=== PATIENT | male | born 1995 | race Caucasian/White ===

== ENCOUNTER 2022-01-23 00:26 | Inpatient (IN) | payer MEDICAID, OTHER ==
[~2022-01-23] VITALS: Ht 167.6 cm; Wt 79.4 kg
[2022-01-23 01:22] LABS: BASOPHILS % (AUTO) 0.6 % (0.0-2.0); EOSINOPHILS % (AUTO) 1.4 % (1.0-6.0); HEMATOCRIT 44.4 % (41-53); HEMOGLOBIN 15.3 g/dL (13.5-17.5); LYMPHOCYTES # (AUTO) 1.8 K/uL (1.0-4.8); LYMPHOCYTES % (AUTO) 23.7 % (22.0-44.0); MEAN CORPUSCULAR HEMOGLOBIN 29.8 pg (26.0-34.0); MEAN CORPUSCULAR HGB CONC 34.4 G/dL (31.0-37.0); MEAN CORPUSCULAR VOLUME 86 fL (80-100); MONOCYTES # (AUTO) 0.7 K/uL (0.1-1.0); MONOCYTES % (AUTO) 9.6 % (2.0-9.0); NEUTROPHILS # (AUTO) 4.9 K/uL (1.8-7.7); NEUTROPHILS % (AUTO) 64.7 % (40.0-70.0); PLATELET COUNT (AUTO) 404 K/uL (150-450); RED BLOOD CELL COUNT(AUTO) 5.14 MIL/uL (4.50-5.90); RED CELL DISTRIBUTION WIDTH 13.1 % (11.5-14.5)
[2022-01-23 01:32] LABS: ANION GAP 8 mmol/L (8-16); CALCIUM, TOTAL 9.2 mg/dL (8.8-10.5); CARBON DIOXIDE 25 mmol/L (22-29); CHLORIDE 103 mmol/L (98-107); CREATININE 1.02 mg/dL (0.60-1.30); GLUCOSE,RANDOM 123 mg/dL (70-110); POTASSIUM 3.6 mmol/L (3.5-5.1); SODIUM SERUM 136 mmol/L (136-145); UREA NITROGEN, BLOOD 17 mg/dL (7-18)
[2022-01-23 01:34] LABS: GLOMERULAR FILTR. RATE CALC > 60 mL/min (>60)
[2022-01-23 01:37] LABS: ALANINE AMINOTRANSFERASE 200 U/L (12-78); ALKALINE PHOSPHATASE 126 U/L (46-116); ASPARTATE AMINOTRANSFERASE 73 U/L (15-37); BILIRUBIN,TOTAL 0.2 mg/dL (0.1-1.0); TOTAL PROTEIN, SERUM 8.7 g/dL (6.4-8.2)
[2022-01-23] MEDS ORDERED: ZOLPIDEM TARTRATE 10 MG TABLET PO PRN (02:30)
[2022-01-23] MEDS ORDERED: HALOPERIDOL 5 MG TABLET PO PRN (02:30)
[2022-01-23] MEDS ORDERED: LORazepam 2 MG TABLET PO PRN (02:30)
[2022-01-23 03:38] LABS: COVID AG,FIA SOURCE NASOPHARYNGEAL
[2022-01-23 03:48] LABS: APPEARANCE,URINE CLEAR (CLEAR); BILIRUBIN,URINE NEGATIVE (NEGATIVE); GLUCOSE, URINE (UA) NEGATIVE (NEGATIVE); KETONES,URINE TRACE mg/dL (NEGATIVE); LEUKOCYTE ESTERASE ,URINE NEGATIVE (NEGATIVE); NITRATE,URINE NEGATIVE (NEGATIVE); OCCULT BLOOD,URINE NEGATIVE (NEGATIVE); PH,URINE 6.5 (5.0-8.0); PROTEIN,URINE TRACE mg/dL (NEGATIVE); SPECIFIC GRAVITIY, URINE 1.033 (1.003-1.030); UROBILINOGEN,URINE <=1.0 mg/dL (<=1.0)
[2022-01-23 03:49] LABS: AMPHET/METH SCREEN,URINE NEGATIVE (NEGATIVE); BARBITURATE SCREEN, URINE NEGATIVE (NEGATIVE); BENZODIAZEPINES SCREEN,URINE NEGATIVE (NEGATIVE); CANNABINOID SCREEN,URINE POSITIVE (NEGATIVE); COCAINE SCREEN,URINE NEGATIVE (NEGATIVE); METHADONE SCREEN, URINE NEGATIVE (NEGATIVE); OPIATE SCREEN,URINE NEGATIVE (NEGATIVE); PHENCYCLIDINE SCREEN,URINE NEGATIVE (NEGATIVE)
[2022-01-23 10:23] VITALS: BP 136/90
[2022-01-23 10:31] VITALS: BP 121/79
[2022-01-23 16:26] VITALS: BP 115/73
[2022-01-23] MEDS: OLANZapine 5 MG TABLET PO SCH (20:20)
[2022-01-24] MEDS ORDERED: ONDANSETRON HCL 4 MG TABLET PO PRN (06:45)
[2022-01-24] MEDS ORDERED: ALBUTEROL SULFATE HFA 90 MCG/PUFF 8 GM INHALER IH PRN (06:45)
[2022-01-24] MEDS ORDERED: ACETAMINOPHEN 325 MG TABLET PO PRN (06:45)
[2022-01-24] MEDS ORDERED: DOCUSATE SODIUM 100 MG CAPSULE PO PRN (06:45)
[2022-01-24] MEDS ORDERED: LOPERAMIDE HCL 2 MG CAPSULE PO PRN (06:45)
[2022-01-24] MEDS ORDERED: PETROLATUM,WHITE 28 GM JELLY TP PRN (06:45)
[2022-01-24] MEDS ORDERED: NICOTINE 14 MG/24 HOUR PATCH TD PRN (06:45)
[2022-01-24] MEDS ORDERED: MAG HYDROX/AL HYDROX/SIMETH ES 30 ML SUSPENSION UDCUP PO PRN (06:45)
[2022-01-24] MEDS ORDERED: IBUPROFEN 400 MG TABLET PO PRN (06:45)
[2022-01-24] MEDS ORDERED: MAGNESIUM HYDROXIDE SUSPENSION 30 ML UDCUP PO PRN (06:45)
[2022-01-24] MEDS ORDERED: GuaiFENesin/D-METHORPHAN [SUGAR-FREE] 200-20MG/10 ML SYRUP UDCUP PO PRN (06:45)
[2022-01-24] MEDS ORDERED: CloNIDine HCL 0.1 MG TABLET PO PRN (06:45)
[2022-01-24] MEDS: SERTRALINE HCL 50 MG TABLET PO SCH (08:48)
[2022-01-24 09:05] VITALS: BP 102/65
[2022-01-24 16:30] VITALS: BP 148/96
[2022-01-24] MEDS: OLANZapine 5 MG TABLET PO SCH (20:12)
[2022-01-25 08:24] VITALS: BP 133/76
[2022-01-25] MEDS: SERTRALINE HCL 50 MG TABLET PO SCH (09:00)
[2022-01-25 16:00] VITALS: BP 100/69
[2022-01-25] MEDS: OLANZapine 5 MG TABLET PO SCH (20:11)
[2022-01-26] MEDS: SERTRALINE HCL 50 MG TABLET PO SCH (08:37)
[2022-01-26 09:28] VITALS: BP 111/69
[2022-01-26 16:19] VITALS: BP 114/79
[2022-01-26] MEDS: OLANZapine 5 MG TABLET PO SCH ×2 (16:19→20:45)
[2022-01-27 08:00] VITALS: BP 110/65
[2022-01-27] MEDS: SERTRALINE HCL 50 MG TABLET PO SCH (08:58)
[2022-01-27] MEDS: OLANZapine 5 MG TABLET PO SCH ×2 (08:59→22:38)
[2022-01-27 16:51] VITALS: BP 110/66
[2022-01-28] MEDS: SERTRALINE HCL 50 MG TABLET PO SCH (08:42)
[2022-01-28] MEDS: OLANZapine 5 MG TABLET PO SCH ×2 (08:42→20:40)
[2022-01-28 08:43] VITALS: BP 95/60
[2022-01-28 17:25] VITALS: BP 125/76
[2022-01-29 08:39] VITALS: BP 131/71
[2022-01-29 09:05] LABS: COVID AG,FIA SOURCE NASOPHARYNGEAL
[2022-01-29] MEDS: SERTRALINE HCL 50 MG TABLET PO SCH (09:57)
[2022-01-29] MEDS: OLANZapine 5 MG TABLET PO SCH (09:57)
[2022-01-29 16:02] VITALS: BP 121/63
[2022-01-29] MEDS: OLANZapine 7.5 MG TABLET PO SCH (20:28)
[2022-01-30] MEDS: SERTRALINE HCL 50 MG TABLET PO SCH (08:21)
[2022-01-30] MEDS: OLANZapine 7.5 MG TABLET PO SCH ×2 (08:22→20:09)
[2022-01-30 10:02] VITALS: BP 146/89
[2022-01-30 16:51] VITALS: BP 141/79
[2022-01-31] MEDS: SERTRALINE HCL 50 MG TABLET PO SCH (08:13)
[2022-01-31] MEDS: OLANZapine 7.5 MG TABLET PO SCH ×2 (08:13→20:18)
[2022-01-31 08:30] VITALS: BP 119/75
[2022-01-31 16:00] VITALS: BP 125/62
[2022-02-01 08:00] VITALS: BP 111/61
[2022-02-01] MEDS: SERTRALINE HCL 50 MG TABLET PO SCH (08:54)
[2022-02-01] MEDS: OLANZapine 7.5 MG TABLET PO SCH ×2 (08:54→22:00)
[2022-02-01 16:00] VITALS: BP 95/56
[2022-02-02 08:00] VITALS: BP 129/65
[2022-02-02] MEDS: OLANZapine 7.5 MG TABLET PO SCH ×2 (09:15→20:16)
[2022-02-02] MEDS: SERTRALINE HCL 50 MG TABLET PO SCH (09:15)
[2022-02-02 16:41] VITALS: BP 105/62
[2022-02-03 08:00] VITALS: BP 129/54
[2022-02-03] MEDS: SERTRALINE HCL 50 MG TABLET PO SCH (08:23)
[2022-02-03] MEDS: OLANZapine 7.5 MG TABLET PO SCH ×2 (08:23→20:14)
[2022-02-03 16:22] VITALS: BP 105/55
[2022-02-04 08:52] VITALS: BP 110/62
[2022-02-04] MEDS: OLANZapine 7.5 MG TABLET PO SCH ×2 (09:10→20:42)
[2022-02-04] MEDS: SERTRALINE HCL 50 MG TABLET PO SCH (09:11)
[2022-02-04 16:00] VITALS: BP 116/81
[2022-02-05 07:04] LABS: COVID AG,FIA SOURCE NASAL SWAB
[2022-02-05] MEDS: OLANZapine 7.5 MG TABLET PO SCH ×2 (08:50→21:32)
[2022-02-05] MEDS: SERTRALINE HCL 50 MG TABLET PO SCH (08:50)
[2022-02-05 09:00] VITALS: BP 105/62
[2022-02-05 16:16] VITALS: BP 110/60
[2022-02-06 08:54] VITALS: BP 105/60
[2022-02-06] MEDS: SERTRALINE HCL 50 MG TABLET PO SCH (09:37)
[2022-02-06] MEDS: OLANZapine 7.5 MG TABLET PO SCH ×2 (09:37→20:13)
[2022-02-06 16:18] VITALS: BP 115/79
[2022-02-06 20:42] VITALS: BP 134/78
[2022-02-07] MEDS: OLANZapine 7.5 MG TABLET PO SCH ×2 (08:11→20:02)
[2022-02-07] MEDS: SERTRALINE HCL 50 MG TABLET PO SCH (08:11)
[2022-02-07 08:59] VITALS: BP 117/63
[2022-02-07 16:16] VITALS: BP 125/82
[2022-02-08 08:00] VITALS: BP 118/49
[2022-02-08] MEDS: SERTRALINE HCL 50 MG TABLET PO SCH (09:47)
[2022-02-08] MEDS: OLANZapine 7.5 MG TABLET PO SCH ×2 (09:47→20:06)
[2022-02-08 16:32] VITALS: BP 106/57
[2022-02-09 08:00] VITALS: BP 141/98
[2022-02-09] MEDS: OLANZapine 7.5 MG TABLET PO SCH (08:27)
[2022-02-09] MEDS: SERTRALINE HCL 50 MG TABLET PO SCH (08:27)
[2022-02-09] MEDS ORDERED: OLANZapine 10 MG TABLET PO SCH (09:00)
[2022-02-09 16:00] VITALS: BP 110/89
[2022-02-09] MEDS: OLANZapine 10 MG TABLET PO SCH (20:26)
[2022-02-10 08:05] VITALS: BP 123/65
[2022-02-10] MEDS: SERTRALINE HCL 50 MG TABLET PO SCH (09:29)
[2022-02-10] MEDS: OLANZapine 10 MG TABLET PO SCH (09:29)
[2022-02-10] MEDS ORDERED: OLAN10 PO (09:58)
[2022-02-10] MEDS ORDERED: SERT-439 PO (09:58)
== END 2022-02-10 13:45 | disposition home or self-care (01) | DRG 750 ==
LOC: EMS 00:28 → 3EI 07:49
PROVIDERS: ADMIT Psychiatry & Neurology Psychiatry; ATTEND Psychiatry & Neurology Psychiatry
DX: F20.0 Paranoid schizophrenia (principal); N17.9 Acute kidney failure, unspecified; D64.9 Anemia, unspecified; F12.10 Cannabis abuse, uncomplicated; F10.10 Alcohol abuse, uncomplicated; Z20.822 Contact with and (suspected) exposure to COVID-19; R45.851 Suicidal ideations; Z59.00 Homelessness unspecified; Z79.899 Other long term (current) drug therapy
CPT/HCPCS: 80053; 81003; 85025; 99285; G0480